=== PATIENT | female | born 1940 | race Caucasian/White ===

== ENCOUNTER 2017-11-28 07:12 | Day surgery (SDC) | payer MEDICARE ==
[2017-11-27 11:53] LABS: BASOPHILS 0.7 % (0-2); EOSINOPHILS 3.1 % (0-7); HEMATOCRIT 33.8 % (36.0-48.0); HEMOGLOBIN 10.9 g/dL (12-16); IMMATURE GRANULOCYTES 0.2 % (0-5); LYMPHOCYTES 17.2 % (15-50); MCH 32.2 pg (26.0-34.0); MCHC 32.2 g/dL (31.0-37.0); MCV 99.7 fL (80.0-100.0); MONOCYTES 7.5 % (2-11); NEUTROPHILS 71.3 % (40-80); PLATELET COUNT 310 10x3/uL (130-400); RBC 3.39 10x6/uL (4.00-5.40); RDW 13.3 % (11.5-14.5); WBC 8.6 10x3/uL (4.8-10.8)
[2017-11-27 12:02] LABS: APTT 29.2 SECONDS (22.8-39.4); INR 0.91 (0.85-1.17); PROTIME 11.9 SECONDS (11.6-15.0)
[2017-11-27 12:16] LABS: ANION GAP 10.4 mmol/L (8-16); BILIRUBIN - TOTAL 0.45 mg/dL (0.2-1.3); CALCIUM 10.2 mg/dL (8.5-10.1); CARBON DIOXIDE 33.5 mmol/L (21.0-32.0); CREATININE - SERUM 4.6 mg/dL (0.6-1.3); POTASSIUM - SERUM 4.9 mmol/L (3.5-5.1)
[~2017-11-28] VITALS: Ht 154.9 cm; Wt 49.9 kg
[2017-11-28 07:46] VITALS: BP 169/93; Ht 154.9 cm; Wt 49.9 kg
[2017-11-28] MEDS ORDERED: LIPITOR20 MG PO (08:08)
[2017-11-28] MEDS ORDERED: ARICEPT10 MG (08:08)
[2017-11-28] MEDS ORDERED: XANAX0.25 MG PO (08:08)
[2017-11-28] MEDS ORDERED: TIROSINT25 MCG PO (08:10)
[2017-11-28] MEDS ORDERED: LAMICTAL ODT100 MG PO (08:11)
[2017-11-28] MEDS ORDERED: CYPROHEPTADINE H4 MG (08:12)
[2017-11-28] MEDS ORDERED: RENVELA800 MG PO (08:12)
[2017-11-28] MEDS ORDERED: LITHIUM CARBON150 MG (08:13)
== END 2017-11-28 16:00 | disposition home or self-care (01) ==
LOC: D.OPS 07:12 → D.PAN 09:00 → D.OPS 10:15 → D.PAN 11:00 → D.OPS 11:00
PROVIDERS: Anesthesiology
DX: M86.9 Osteomyelitis, unspecified (principal); L97.524 Non-pressure chronic ulcer of other part of left foot with necrosis of bone

== ENCOUNTER 2018-03-09 11:37 | Inpatient (IN) | payer MEDICARE ==
[~2018-03-09] VITALS: Ht 154.9 cm; Wt 50.8 kg
--- NOTE | ~2018-03-09 | PN ---
PATIENT:JULIAN WISE MEDICAL RECORD: [id number] LOCATION:MARCELO StoneNikolaiAngie ADMISSION DATE: 03/09/18 PROGRESS NOTE DATE OF SERVICE: 03/18/2018 SUBJECTIVE: The patient's case was discussed with staff. She has no new complaint. OBJECTIVE: The patient is in good behavioral control with limited insight about her condition. She generally tolerates her medicines well. She has had no active psychotic symptoms and no evidence of mood lability. ASSESSMENT: No change in diagnoses. PLAN: The patient will be transitioned out of the hospital tomorrow morning. She is having dialysis this evening and I want her to just wait until tomorrow to leave. Her long-term prognosis is guarded. TRANSINT:[id number] Voice Confirmation ID: [id number] DOCUMENT ID: [id number] ANASTACIO DORANTES MD at 0932 CC: [id number] DICTATION DATE: 03/18/18 1557 VP CLIENT SERVICES: 03/18/18 1714 ADM IN [place] [id number] [place] [address]
--- NOTE | ~2018-03-09 | PN ---
PATIENT:JULIAN WISE MEDICAL RECORD: [id number] LOCATION:HENRYErica CohenAngie ADMISSION DATE: 03/09/18 PROGRESS NOTE DATE OF SERVICE: 03/17/2018 SUBJECTIVE: The patient's case was discussed with staff. She has no new complaint. OBJECTIVE: The patient denies intent to harm herself or others. She generally tolerates her medicines well. ASSESSMENT: No change in diagnoses. PLAN: I anticipate the patient can be transitioned out of the hospital tomorrow. Her long-term prognosis is guarded. TRANSINT:[id number] Voice Confirmation ID: [id number] DOCUMENT ID: [id number] ANASTACIO DORANTES MD at 1551 CC: [id number] DICTATION DATE: 03/17/18 1155 SHEEP KILLER: 03/17/18 1217 ADM IN [place] [address] [place] [address]
--- NOTE | ~2018-03-09 | PN ---
PATIENT:JULIAN WISE MEDICAL RECORD: [id number] LOCATION:MARCELO Cohen112 ADMISSION DATE: 03/09/18 PROGRESS NOTE DATE OF SERVICE: 03/15/2018 SUBJECTIVE: The patient's case was discussed with staff. She has no new complaint. OBJECTIVE: The patient is undergoing dialysis today. I am anxious to see if she has any hallucinations. She has had none this week. I am strongly suspecting that the hallucinations are related to the dialysis process. TRANSINT:[id number] Voice Confirmation ID: [id number] DOCUMENT ID: [id number] ANASTACIO DORANTES MD at 1309 CC: [id number] DICTATION DATE: 03/15/18 1333 BUSINESS SOLUTIONS ARCHITECT: 03/15/18 1542 ADM IN [place] [address] [place] [address]
--- NOTE | ~2018-03-09 | PN ---
PATIENT:JULIAN WISE MEDICAL RECORD: [id number] LOCATION:MARCELO Cohen112 ADMISSION DATE: 03/09/18 PROGRESS NOTE DATE OF SERVICE: 03/13/2018 SUBJECTIVE: The patient's case was discussed with staff. She has no new complaint. OBJECTIVE: The patient denies intent to harm herself or others. She generally tolerates her medicines well. Her mood is euthymic and she has had no more psychotic symptoms. She is going to have dialysis today and I am anxious to see if that causes any problems with the hallucinations. TRANSINT:[id number] Voice Confirmation ID: [id number] DOCUMENT ID: [id number] ANASTACIO DORANTES MD at 1021 CC: [id number] DICTATION DATE: 03/13/18 1213 MEDIA BUYER: 03/13/18 1237 ADM IN [facility] [address] [place] [address]
--- NOTE | ~2018-03-09 | PN ---
PATIENT:JULIAN WISE MEDICAL RECORD: [id number] LOCATION:MARCELO Cohen112 ADMISSION DATE: 03/09/18 PROGRESS NOTE DATE OF SERVICE: 03/13/2018 SUBJECTIVE: The patient's case was discussed with staff. She has no new complaint. OBJECTIVE: The patient denies intent to harm herself or others. She has not had any further hallucinations. She has also not had any dialysis since Sunday. I am certain the dialysis nurse said she was going to return Sunday to give her dialysis, but she did not. I am not sure what has come up, but I will check on it. The patient says she feels fine even though she did not have dialysis treatment on Sunday. ASSESSMENT: No change in diagnoses. PLAN: I am going to increase the patient's trazodone to 100 mg at bedtime. Her long-term prognosis is guarded. TRANSINT:[id number] Voice Confirmation ID: [id number] DOCUMENT ID: [id number] ANASTACIO DORANTES MD at 1327 CC: [id number] DICTATION DATE: 03/14/18 1032 FEED ELEVATOR WORKER: 03/14/18 1114 ADM IN [place] [id number] [place] [address]
--- NOTE | ~2018-03-09 | PN ---
PATIENT:JULIAN WISE MEDICAL RECORD: [id number] LOCATION:MARCELO CohenAngie ADMISSION DATE: 03/09/18 PROGRESS NOTE DATE OF SERVICE: 03/12/2018 SUBJECTIVE: The patient's case was discussed with staff. She has no new complaint. OBJECTIVE: The patient is in good behavioral control with limited insight about her condition. She did not have hallucinations yesterday after dialysis, but the dialysis was incomplete because of her IV access infiltrating. ASSESSMENT: No change in diagnoses. PLAN: Current medicines have been reviewed. I am going to discontinue the Remeron, but will consider other antidepressant medicines tomorrow. TRANSINT:[id number] Voice Confirmation ID: [id number] DOCUMENT ID: [id number] ANASTACIO DORANTES MD at 1133 CC: [id number] DICTATION DATE: 03/12/18 1520 HEAD OF DRAMA: 03/12/182001 ADM IN [facility] [address] [place] [address]
--- NOTE | ~2018-03-09 | PN ---
PATIENT:JULIAN WISE MEDICAL RECORD: [id number] LOCATION:MARCELO CohenAngie ADMISSION DATE: 03/09/18 PROGRESS NOTE DATE OF SERVICE: 03/19/2018 SUBJECTIVE: The patient's case was discussed with staff. She has no new complaint. OBJECTIVE: The patient is in good behavioral control. She has limited insight about her condition and does tolerate her medicines well. ASSESSMENT: No change in diagnoses. PLAN: Current medicines have been reviewed and will be maintained. There is no evidence of acute or direct dangerousness and no evidence of psychosis. She will be transitioned out of the hospital today. TRANSINT:[id number] Voice Confirmation ID: [id number] DOCUMENT ID: [id number] ANASTACIO DORANTES MD at 1058 CC: [id number] DICTATION DATE: 03/19/181425 DEDICATED REGIONAL DRIVER: 03/19/18 1622 DIS IN 03/19/18 [facility] [address] [place] [address]
--- NOTE | ~2018-03-09 | PN ---
PATIENT:JULIAN WISE MEDICAL RECORD: [id number] LOCATION:MARCELO Cohen112 ADMISSION DATE: 03/09/18 PROGRESS NOTE DATE OF SERVICE: 03/11/2018 SUBJECTIVE: The patient's case was discussed with staff. She has no new complaint. OBJECTIVE: The patient is not having any more psychotic symptoms, but she is having dialysis today and it will be interesting to see if the symptoms occur again. She is reporting poor sleep. I do intend to stop her Remeron, but will taper it over the next couple of days. I am also going to give her some trazodone to assist with sleep consolidation. TRANSINT:[id number] Voice Confirmation ID: [id number] DOCUMENT ID: [id number] ANASTACIO DORANTES MD at 1042 CC: [id number] DICTATION DATE: 03/11/18 1615 SPRAY GUNNER: 03/11/18 1740 ADM IN [place] [address] [place] [address]
--- NOTE | ~2018-03-09 | DS ---
PATIENT:JULIAN WISE :44 MEDICAL RECORD: [id number] DISCHARGE SUMMARY ADMISSION DATE: 03/09/18 DISCHARGE DATE: 03/19/18 IDENTIFYING DATA: The patient is 77 years old and she was admitted to the hospital on a voluntary basis because of hallucinations. The patient was apparently seeing her mother and other family members on a regular basis, and although this was typically occurring after dialysis, it was occurring at other times as well. Obviously, she is in renal failure and that is the reason for the dialysis which has been going on for a long time. Of particular concern is the fact that the patient has a very extensive long-term psychiatric history and has been diagnosed with bipolar disorder for decades. She has pretty limited insight about the connection between the hallucinations and the long-standing mental illness, but she does think it is primarily related to the dialysis. HOSPITAL COURSE: The patient was admitted to the hospital and fully evaluated from both a medical, psychiatric and social standpoint. I made some minor adjustments to her psychotropic medications and felt that she was indeed in a depressed phase of her bipolar disorder. This improved and actually she had 2 rounds of dialysis after the improvement and had no psychotic symptoms associated with it. Her mood significantly improved as well. It was thought that perhaps she had a dementia, but if it is present, it is mild and I do not think that is primarily what is going on. She was subsequently discharged home with her . DISCHARGE DIAGNOSES: AXIS I: Bipolar disorder, depressed phase. Delirium secondary to multiple metabolic factors, resolved. AXIS II: None. AXIS III: Hypothyroidism, renal failure. AXIS IV: Moderate stressors. AXIS V: Global assessment of functioning is 45. PLAN: At the time of discharge, the patient was in good behavioral control and had no active thoughts of harming herself or others. She was tolerating her medications well. Her long-term prognosis is guarded. TRANSINT:[id number] Voice Confirmation ID: [id number] DOCUMENT ID: [id number] ANASTACIO DORANTES MD at 1737 CC: [id number] DICTATION DATE: 03/21/18921 JEWEL BEARING DRILLER: 03/21/182220 DIS IN 03/19/18 [place] [address] [place] [address]
--- NOTE | ~2018-03-09 | PSY ---
PATIENT NAME:JULIAN WISE MEDICAL RECORD: [id number] : 44 LOCATION:BerthaTOMAS Vuong1 ADMISSION DATE: 03/09/18 ACCOUNT: [id number] PSYCHIATRIC EVALUATION DATE OF EVALUATION: 03/10/18 IDENTIFYING DATA: The patient is 77 years old and she is admitted to the hospital on a voluntary basis secondary to psychotic symptoms. CHIEF COMPLAINT: Hallucinations. HISTORY OF PRESENT ILLNESS: The patient is a very nice and cooperative elderly woman, who is referred to us secondary to hallucinations. She has been seeing her mother and other family members on a regular basis and it typically is occurring after dialysis. In addition to that, she has had times where she becomes disoriented. For example, after returning home from dialysis, she did not believe she was in her home that it was someone else's home. The patient has had some gradual decline in her cognition and sometime ago was no longer allowed to drive because she was getting lost. She denies that she would seek to harm herself or others. She denies any overt psychotic symptoms. PAST MEDICAL HISTORY: Significant for hypothyroidism and renal failure secondary to long-term lithium administration. PAST PSYCHIATRIC HISTORY: Significant for an existing diagnosis of bipolar disorder for which she has been taking lithium for a long time. FAMILY HISTORY: Unremarkable by her account. ALLERGIES: No known drug allergies. CURRENT MEDICATIONS: Include folic acid, Megace, Synthroid, Zoloft, Lamictal, Remeron, lithium, and Xanax. SOCIAL HISTORY: The patient is to her second . She has children with her first . She was employed doing clerical and office work. She has no history of drug or alcohol dependence. MENTAL STATUS EXAMINATION: The patient is awake, alert and oriented to person, place and somewhat to time and situation. Her mood is flat. Her affect is constricted. Thought processes are circumstantial. Memory, concentration, and abstraction abilities are moderately impaired and she denies any active intent to harm herself or others as well as any overt psychotic symptoms. ASSETS: Supportive family members. LIABILITIES: Limited insight. DIAGNOSTIC IMPRESSION: AXIS I: 1. Bipolar disorder, depressed phase. 2. Probable delirium secondary to metabolic factors. 3. Rule out dementia, probably vascular in nature. AXIS II: None. AXIS III: Renal failure, hypothyroidism. AXIS IV: Moderate stressors. AXIS V: Global assessment of functioning is 40. PLAN: At this time, the patient is admitted to the hospital secondary to psychotic symptoms associated with multiple factors. The multiple factors include metabolic changes, medication, and development of a dementia. The dementia is somewhat atypical. The patient was actually oriented, although it did appear that she was guessing about some of the answers and certainly uncertain about them, but she was oriented. She, however, failed to answer very simple questions that I know she understood, but an example would be how many times you have been that has to be an even number 1, 2, 3, and so on. She really stumbled with this and was explaining a circumstantial story about her 's dying when I think she is talking about her current , whose , but when asked about her first how long she was to him, after a long period a reflection, she told me she did not have any idea. It is clear she is cognitively impaired. The business about not being allowed to drive because she gets lost is very consistent with an early dementia and the loss of visual spatial activities. I am certain she is not intact cognitively. I am less certain about the etiology of it. In addition to this, she also has a history of mental illness and has been on lithium. A likely aggravating factor and her renal failure is the use of lithium and its kidney toxicity. At this point, with her being on lithium and thyroid replacement. There is little risk of any end-organ damage that has been already occurred or been related to the lithium. Since these factors come on gradually and previous clinicians have decided to keep her on lithium that is to say the relative benefit of the lithium outweighed the damage it was doing to her. I strongly suspect this is a medicine that she needs to be on. I will check a lithium level. I am going to make some medication adjustments in an effort to treat her underlying perceptual problems and I suspect if I can elevate her mood a little bit she may have some improvement in her underlying cognitive slowing as well. TRANSINT:[id number] Voice Confirmation ID: [id number] DOCUMENT ID: [id number] ANASTACIO DORANTES MD at 1556 CC: [id number] DICTATION DATE: 03/10/18 1304 ANIMAL HUSBANDRY TECHNICIAN: 03/10/18 1333 [facility] IN [place] [address] [place] [address]
--- NOTE | ~2018-03-09 | PN ---
PATIENT:JULIAN WISE MEDICAL RECORD: [id number] LOCATION:MARCELO CohenAngie ADMISSION DATE: 03/09/18 PROGRESS NOTE DATE OF SERVICE: 03/16/2018 SUBJECTIVE: The patient's case was discussed with staff. She has no new complaint. OBJECTIVE: The patient is in good behavioral control with limited insight about her condition. She does tolerate her medicines well. She did not have any hallucinations after dialysis yesterday. She is significantly better and has had no hallucinations now for several days. ASSESSMENT: No change in diagnoses. PLAN: Current medicines will be maintained and I anticipate she can reasonably be transitioned out of the hospital soon if this level of improvement continues. TRANSINT:[id number] Voice Confirmation ID: [id number] DOCUMENT ID: [id number] ANASTACIO DORANTES MD at 1050 CC: [id number] DICTATION DATE: 03/16/18 1312 SUPERVISOR COIL [place]INGS: 03/16/18 1345 ADM IN [facility] [address] [place] [address]
[~2018-03-09 11:37] MED LIST: ARICEPT10 MG; CYPROHEPTADINE H4 MG; LAMICTAL ODT100 MG PO; LIPITOR20 MG PO; LITHIUM CARBON150 MG; RENVELA800 MG PO; TIROSINT25 MCG PO; XANAX0.25 MG PO
[2018-03-09 15:42] VITALS: BP 141/76
[2018-03-09] MEDS ORDERED: SYNTHROID25 MCG PO ×2 (15:58→16:48)
[2018-03-09] MEDS ORDERED: RENVELA800 MG PO ×2 (16:09→16:57)
[2018-03-09] MEDS ORDERED: ZOLOFT50 MG PO ×2 (16:11→16:49)
[2018-03-09] MEDS ORDERED: LITHIUM CARBON150 MG PO ×3 (16:17→17:36)
[2018-03-09] MEDS ORDERED: LAMICTAL100 MG PO (16:56)
[2018-03-09] MEDS ORDERED: LANOXIN125 MCG PO (17:03)
[2018-03-09] MEDS ORDERED: PROBIOTIC1 EAC1 PO ×2 (17:06→17:15)
[2018-03-09] MEDS ORDERED: CO Q-1030 MG PO (17:09)
[2018-03-09] MEDS ORDERED: MEGACE40 MG PO ×2 (17:11→17:26)
[2018-03-09] MEDS ORDERED: SENSIPAR90 MG PO (17:18)
[2018-03-09] MEDS ORDERED: RENA-VITE TABL0.8 MG PO (17:29)
[2018-03-09] MEDS ORDERED: XANAX0.25 MG PO (17:39)
[2018-03-09] MEDS ORDERED: VELTASSA8.4 GM PO (17:44)
[2018-03-09 19:16] LABS: BASOPHILS 0.5 % (0-2); EOSINOPHILS 2.5 % (0-7); HEMATOCRIT 33.7 % (36.0-48.0); HEMOGLOBIN 10.8 g/dL (12-16); IMMATURE GRANULOCYTES 0.2 % (0-5); LYMPHOCYTES 18.6 % (15-50); MCH 32.1 pg (26.0-34.0); MCV 100.3 fL (80.0-100.0); MONOCYTES 9.5 % (2-11); NEUTROPHILS 68.7 % (40-80); PLATELET COUNT 353 10x3/uL (130-400); RBC 3.36 10x6/uL (4.00-5.40); RDW 13.3 % (11.5-14.5); WBC 8.1 10x3/uL (4.8-10.8)
[2018-03-09] MEDS ORDERED: REMERON30 MG PO (19:36)
[2018-03-09 19:38] LABS: ALBUMIN 3.6 g/dL (3.4-5.0); ANION GAP 11.6 mmol/L (8-16); BILIRUBIN - TOTAL 0.29 mg/dL (0.2-1.3); CALCIUM 9.6 mg/dL (8.5-10.1); CARBON DIOXIDE 30.6 mmol/L (21.0-32.0); CHOL - HDL RATIO 4.1 ratio (2.3-4.1); CREATININE - SERUM 5.5 mg/dL (0.6-1.3); DIGOXIN 0.48 ng/mL (0.90-2.00); LDL-HDL RATIO 2.4 ratio (1.5-3.5); POTASSIUM - SERUM 4.2 mmol/L (3.5-5.1); PROTEIN - SERUM 7.2 g/dL (6.4-8.2); THYROID STIMULATING HORMONE 2.77 uIU/mL (0.36-3.74)
[2018-03-09 20:23] VITALS: BP 172/83
[2018-03-09 22:35] LABS: APPEARANCE CLEAR (CLEAR); BILIRUBIN NEGATIVE (NEGATIVE); COLOR YELLOW (YELLOW); GLUCOSE NEGATIVE (NEGATIVE); KETONE NEGATIVE (NEGATIVE); NITRITE NEGATIVE (NEGATIVE); PROTEIN NEGATIVE (NEGATIVE); UROBILINOGEN NORMAL (NORMAL)
[2018-03-10 08:00] VITALS: BP 169/84
[2018-03-10 20:20] VITALS: BP 142/91
[2018-03-11 09:16] VITALS: BP 128/62
[2018-03-11 10:05] VITALS: BMI 21.2
[2018-03-11 12:57] LABS: ANION GAP 14.3 mmol/L (8-16); CREATININE - SERUM 7.4 mg/dL (0.6-1.3); POTASSIUM - SERUM 5.3 mmol/L (3.5-5.1)
[2018-03-11 14:52] VITALS: Ht 154.9 cm; Wt 50.8 kg
[2018-03-12 07:34] LABS: FOLATE (FOLIC ACID) - SERUM >20.0 ng/mL (>3.0)
[2018-03-12 09:33] VITALS: BP 126/56
[2018-03-12 09:37] VITALS: BP 126/56
[2018-03-12 20:00] VITALS: BP 123/57
[2018-03-12 21:19] LABS: APPEARANCE CLEAR (CLEAR); BILIRUBIN NEGATIVE (NEGATIVE); COLOR YELLOW (YELLOW); GLUCOSE NEGATIVE (NEGATIVE); KETONE NEGATIVE (NEGATIVE); NITRITE NEGATIVE (NEGATIVE); PROTEIN TRACE mg/dL (NEGATIVE); UROBILINOGEN NORMAL (NORMAL)
[2018-03-13 10:03] VITALS: BP 141/54
[2018-03-13 19:41] VITALS: BP 128/59
[2018-03-14 07:58] LABS: BASOPHILS 0.9 % (0-2); EOSINOPHILS 4.4 % (0-7); HEMATOCRIT 36.1 % (36.0-48.0); HEMOGLOBIN 11.9 g/dL (12-16); IMMATURE GRANULOCYTES 0.2 % (0-5); LYMPHOCYTES 22.2 % (15-50); MCH 32.2 pg (26.0-34.0); MCV 97.6 fL (80.0-100.0); MEAN PLATELET VOLUME 9.3 fL (7.4-10.4); MONOCYTES 7.6 % (2-11); NEUTROPHILS 64.7 % (40-80); PLATELET COUNT 378 10x3/uL (130-400); WBC 9.1 10x3/uL (4.8-10.8)
[2018-03-14 08:24] LABS: ANION GAP 15.8 mmol/L (8-16); BILIRUBIN - TOTAL 0.35 mg/dL (0.2-1.3); CALCIUM 10.6 mg/dL (8.5-10.1); CARBON DIOXIDE 26.6 mmol/L (21.0-32.0); CREATININE - SERUM 8.2 mg/dL (0.6-1.3); PHOSPHOROUS 6.7 mg/dL (2.5-4.9); POTASSIUM - SERUM 4.4 mmol/L (3.5-5.1); PROTEIN - SERUM 7.7 g/dL (6.4-8.2)
[2018-03-14 08:51] VITALS: BP 111/59
[2018-03-14 19:14] VITALS: BP 147/77
[2018-03-15 08:04] VITALS: BP 111/52
[2018-03-15 20:04] VITALS: BP 110/48
[2018-03-16 06:27] LABS: BASOPHILS 0.9 % (0-2); EOSINOPHILS 3.5 % (0-7); HEMATOCRIT 34.7 % (36.0-48.0); HEMOGLOBIN 11.4 g/dL (12-16); IMMATURE GRANULOCYTES 0.1 % (0-5); LYMPHOCYTES 30.2 % (15-50); MCH 31.8 pg (26.0-34.0); MCHC 32.9 g/dL (31.0-37.0); MCV 96.9 fL (80.0-100.0); MEAN PLATELET VOLUME 9.7 fL (7.4-10.4); MONOCYTES 6.8 % (2-11); NEUTROPHILS 58.5 % (40-80); PLATELET COUNT 346 10x3/uL (130-400); RBC 3.58 10x6/uL (4.00-5.40); RDW 12.9 % (11.5-14.5); WBC 7.8 10x3/uL (4.8-10.8)
[2018-03-16 06:41] LABS: ALBUMIN 4.1 g/dL (3.4-5.0); ANION GAP 12.5 mmol/L (8-16); BILIRUBIN - TOTAL 0.46 mg/dL (0.2-1.3); CALCIUM 10.5 mg/dL (8.5-10.1); CARBON DIOXIDE 30.7 mmol/L (21.0-32.0); POTASSIUM - SERUM 4.2 mmol/L (3.5-5.1); PROTEIN - SERUM 7.9 g/dL (6.4-8.2)
[2018-03-16 06:42] LABS: CREATININE - SERUM 5.6 mg/dL (0.6-1.3)
[2018-03-16 10:18] VITALS: BP 148/78
[2018-03-17 08:52] VITALS: BP 139/61
[2018-03-17 20:00] VITALS: BP 134/70
[2018-03-18 07:44] LABS: BASOPHILS 0.8 % (0-2); EOSINOPHILS 3.7 % (0-7); HEMATOCRIT 32.2 % (36.0-48.0); HEMOGLOBIN 10.6 g/dL (12-16); IMMATURE GRANULOCYTES 0.1 % (0-5); LYMPHOCYTES 25.5 % (15-50); MCH 31.7 pg (26.0-34.0); MCHC 32.9 g/dL (31.0-37.0); MCV 96.4 fL (80.0-100.0); MEAN PLATELET VOLUME 9.9 fL (7.4-10.4); MONOCYTES 4.6 % (2-11); NEUTROPHILS 65.3 % (40-80); PLATELET COUNT 337 10x3/uL (130-400); RBC 3.34 10x6/uL (4.00-5.40); RDW 12.7 % (11.5-14.5); WBC 7.8 10x3/uL (4.8-10.8)
[2018-03-18 07:47] LABS: ALBUMIN 3.8 g/dL (3.4-5.0); ANION GAP 14.2 mmol/L (8-16); BILIRUBIN - TOTAL 0.32 mg/dL (0.2-1.3); CALCIUM 10.3 mg/dL (8.5-10.1); CREATININE - SERUM 8.2 mg/dL (0.6-1.3); PHOSPHOROUS 5.7 mg/dL (2.5-4.9); POTASSIUM - SERUM 4.2 mmol/L (3.5-5.1); PROTEIN - SERUM 7.5 g/dL (6.4-8.2)
[2018-03-18 08:00] VITALS: BP 150/78
[2018-03-18] MEDS ORDERED: VITAMIN D5000 UNIT PO (15:58)
[2018-03-18] MEDS ORDERED: XALATAN 0.0052.5 ML EACH EYE (15:59)
[2018-03-18] MEDS ORDERED: SYNTHROID50 MCG PO (15:59)
[2018-03-18] MEDS ORDERED: SENNA8.6 MG PO (15:59)
[2018-03-18] MEDS ORDERED: TRAZODONE HCL100 MG PO (16:00)
[2018-03-18 19:53] VITALS: BP 185/63
[2018-03-19 08:00] VITALS: BP 104/47
== END 2018-03-19 15:30 | disposition home or self-care (01) | DRG 885 ==
LOC: D.PSYCH 11:37
PROVIDERS: Family Medicine; Internal Medicine; Psychiatry & Neurology Psychiatry
DX: F31.30 Bipolar disorder, current episode depressed, mild or moderate severity, unspecified (principal); N18.6 End stage renal disease; I12.0 Hypertensive chronic kidney disease with stage 5 chronic kidney disease or end stage renal disease; F03.90 Unspecified dementia, unspecified severity, without behavioral disturbance, psychotic disturbance, mood disturbance, and anxiety; E03.9 Hypothyroidism, unspecified; F41.9 Anxiety disorder, unspecified; R63.0 Anorexia; Z68.21 Body mass index [BMI] 21.0-21.9, adult; E78.5 Hyperlipidemia, unspecified; E55.9 Vitamin D deficiency, unspecified